=== PATIENT | male | born 1960 | race Caucasian/White ===

== ENCOUNTER 2017-03-07 11:30 | Emergency (ER) | payer OTHER ==
[2017-03-07 11:35] VITALS: TEMP 98.2
--- NOTE | 2017-03-07 11:49 | CPEKG ---
Heart Rate: 102 RR Interval: 588 P-R Interval: 164 QRSD Interval: 80 QT Interval: 340 QTC Interval: 443 P Merom: 30 QRS Merom: 72 T Wave Merom: 1 EKG Severity - OTHERWISE NORMAL ECG - EKG Impression: SINUS TACHYCARDIA EKG Impression: LOW VOLTAGE IN FRONTAL LEADS Electronically Signed By: Myrna Dumont 07-Mar-2017 17:23:12
[2017-03-07 11:57] LABS: % IMMATURE GRANULYOCYTES 0.3 % (0.0-1.1); ABSOLUTE IMMATURE GRANULOCYTES 0.03 10^3/uL (0.00-0.10); ADD DIFF? NO; ADD MORPH? NO; ADD SCAN? NO; ATYPICAL LYMPHOCYTE FLAG 0 (0-99); FRAGMENT RBC FLAG 0 (0-99); HEMATOCRIT 50.4 % (40.0-51.0); HEMOGLOBIN 17.2 g/dL (13.7-17.5); LEFT SHIFT FLG 0 (0-99); LIPEMIA HEMOLYSIS FLAG 90 (0-99); MEAN CELL HEMOGLOBIN 32.1 pg (27.9-34.1); MEAN CELL HEMOGLOBIN CONCENTR. 34.1 g/dL (32.4-36.7); MEAN PLATELET VOLUME 10.5 fL (8.7-11.7); PLATELET CLUMPS FLAG 0 (0-99); PLATELET COUNT 203 10^3/uL (150-400); RED BLOOD CELL COUNT 5.36 10^6/uL (4.40-6.38); RED CELL DISTRIBUTION WIDTH 13.8 % (11.5-15.2)
[2017-03-07 12:08] LABS: ANION GAP 16 mEq/L (8-16); CALCIUM 9.8 mg/dL (8.5-10.4); CARBON DIOXIDE 23 mEq/l (22-31); CHLORIDE 102 mEq/L (97-110); CREATININE 1.2 mg/dL (0.7-1.3); GLOMERULAR FILTRATION RATE > 60; GLUCOSE 102 mg/dL (70-100); POTASSIUM 4.6 mEq/L (3.5-5.2); SODIUM 141 mEq/L (134-144)
[2017-03-07 12:20] LABS: TROPONIN I < 0.012 ng/mL (0.000-0.034)
--- NOTE | 2017-03-07 13:11 | EDPHY ---
HPI/HX/ROS/PE/MDM Narrative: CHIEF COMPLAINT: Chest pain, nausea/vomiting HISTORY OF PRESENT ILLNESS: This patient is a 57 year old male arriving with his complaining of chest pain beginning yesterday which has been constant since that time. He has had chest pains intermittently for several years. He did follow up with cardiology ( Keith Castandea) about one year ago for an echocardiogram and stress test, which were negative. Yesterday, he had chest discomfort all day which he describes as tightness. It has been consistent without waxing or waning. He had no nausea or vomiting at that time, and thought his discomfort may be related to gas or musculoskeletal pains from golf, but he denies any irregular activities for him. His chest tightness continued this morning and he had associated nausea and vomited. His nausea has since resolved. He denies shortness of breath. He has some increased discomfort on the left side with deep inspiration. He endorses diarrhea onset one or two days ago. He did have an episode this morning. He denies abdominal pain, cramping, or bloating. No fever, chills, cough, recent illness, shortness of breath, palpitations, urinary complaints, headache, lightheadedness. He also relates that he has had some issues with pain in his left shoulder thought to be rotator cuff injury. REVIEW OF SYSTEMS: Aside from elements discussed in the HPI, a comprehensive 10-point review of systems was reviewed and is negative. PAST MEDICAL HISTORY: 1. Hypertension 2. Hyperlipidemia (atorvastatin) 3. History of clotting following procedure (not currently anticoagulated). Family history of CAD in father (triple bypass at age 53, angina) and mother ( multiple stent placements) SOCIAL HISTORY: . at bedside. Lives in [place] VITAL SIGNS: Reviewed by me GENERAL: Well-developed, well-nourished, resting comfortably in no respiratory distress. HEENT: Atraumatic. Eyes: No icterus, no injection. Mouth: moist mucous membranes. No erythema or lesions. Neck: supple with no adenopathy. LUNGS: Diminished breath sounds throughout, no wheezes or rhonchi or rales. No rash. Mild left-sided chest wall tenderness. Patient indicates the area of chest discomfort is in his pectoralis muscles on the left. CARDIAC: Regular rate and rhythm, no rubs, murmurs or gallops. ABDOMEN: Soft, nontender, nondistended, bowel sounds normal. BACK: No CVA tenderness. EXTREMITIES: No trauma. No edema. Range of motion is normal throughout. NEURO: Alert and oriented, grossly nonfocal. SKIN: Warm and dry, no rash. PSYCHIATRIC: Normal mentation, no agitation. Portions of this note were transcribed by a medical laboratory manager. I personally performed a history, physical exam, medical decision making, and confirmed accuracy of information the transcribed note. ED Course: 57 year old male presents with chest tightness constant since yesterday. Exam unremarkable. Plan for CBC, BMP, Troponin. D-dimer. Plan for EKG, chest x- ray. Chest x-ray negative for acute processes. Troponin negative. D-dimer negative. Patient received albuterol nebulizer treatment for diminished breath sounds. Patient is feeling well following Albuterol administration. Plan to discharge home in good condition. Long discussion held with patient and his concerning the need for risk stratification in the near future. Patient has had discomfort for greater than 24 hours with a nonischemic EKG and negative troponin. His discomfort seems musculoskeletal: The patient does have some tenderness in his pectoralis muscles. He felt better following a neb treatment. He understands the importance of follow-up with his primary care physician. Understands importance of returning to the emergency department if his symptoms were to worsen, or change in any way. MDM: After history and physical examination, the differential for chest pain was considered, including but not limited to, myocardial ischemia, acute coronary syndrome, pulmonary embolus, bronchospasm, chest wall pain, pleural inflammation and pulmonary infectious causes. - Data Points Imaging Results: Imaging Impressions Chest X-Ray 03/07/17 11:49 Impression: Clear lungs. No acute process. Imaging: I viewed and interpreted images myself Laboratory Results: Laboratory Results 03/07/17 11:42 03/07/17 11:49 03/07/17 03/07/17 03/07/17 11:49 11:42 11:42 WBC 11.95 10^3/uL H 10^3/uL (3.80-9.50) RBC 5.36 10^6/uL 10^6/uL (4.40-6.38) Hgb 17.2 g/dL g/dL (13.7-17.5) Hct 50.4 % % (40.0-51.0) MCV 94.0 fL fL (81.5-99.8) MCH 32.1 pg pg (27.9-34.1) MCHC 34.1 g/dL g/dL (32.4-36.7) RDW 13.8 % % (11.5-15.2) Plt Count 203 10^3/uL 10^3/uL (150-400) MPV 10.5 fL fL (8.7-11.7) Neut % (Auto) 90.5 % H % (39.3-74.2) Lymph % (Auto) 5.4 % L % (15.0-45.0) [place] % (Auto) 3.5 % L % (4.5-13.0) Eos % (Auto) 0.0 % L % (0.6-7.6) Baso % (Auto) 0.3 % % (0.3-1.7) Nucleat RBC Rel Count 0.0 % % (0.0-0.2) Absolute Neuts (auto) 10.83 10^3/uL H 10^3/uL (1.70-6.50) Absolute Lymphs (auto) 0.64 10^3/uL L 10^3/uL (1.00-3.00) Absolute Monos (auto) 0.42 10^3/uL 10^3/uL (0.30-0.80) Absolute Eos (auto) 0.00 10^3/uL L 10^3/uL (0.03-0.40) Absolute Basos (auto) 0.03 10^3/uL 10^3/uL (0.02-0.10) Absolute Nucleated RBC 0.00 10^3/uL 10^3/uL (0-0.01) Immature Gran % 0.3 % % (0.0-1.1) Immature Gran # 0.03 10^3/uL 10^3/uL (0.00-0.10) D-Dimer 0.35 ug/mLFEU ug/mLFEU (0.00-0.50) Sodium 141 mEq/L mEq/L (134-144) Potassium 4.6 mEq/L mEq/L (3.5-5.2) Chloride 102 mEq/L mEq/L (97-110) Carbon Dioxide 23 mEq/l mEq/l (22-31) Anion Gap 16 mEq/L mEq/L (8-16) BUN 18 mg/dL mg/dL (7-23) Creatinine 1.2 mg/dL mg/dL (0.7-1.3) Estimated GFR > 60 Glucose 102 mg/dL H mg/dL (70-100) Calcium 9.8 mg/dL mg/dL (8.5-10.4) Troponin I < 0.012 ng/mL ng/mL (0.000-0.034) Medications Given: Discontinued Medications Albuterol (Proventil Neb) 3 ml IH EDNOW ONE Stop: 03/07/17 13:50 Last Admin: 03/07/17 13:54 Dose: 3 ml General Time Seen by Provider: 03/07/17 12:39 Initial Vital Signs: Initial Vital Signs Temperature (C) 36.8 C 03/07/17 11:33 Heart Rate 98 03/07/17 11:33 Respiratory Rate 18 03/07/17 11:33 Blood Pressure 138/98 H 03/07/17 11:33 O2 Sat (%) 96 03/07/17 11:33 O2 Delivery Mode Room Air Allergies/Adverse Reactions: No Known Allergies Allergy (Verified 03/07/17 11:31) Home Medications: Medication Instructions Recorded Atorvastatin Calcium 03/07/17 Departure - Departure Disposition: Home, Routine, Self-Care Clinical Impression: Chest discomfort Condition: Good Instructions: Chest Pain (ED) Additional Instructions: 1. Follow up with your primary care provider for further evaluation of symptoms unresolved in the next 1-2 days. 2. Return to the emergency department for increased chest pain, shortness of breath, fever, or other worsening of condition. 3. You may try Ibuprofen 600mg every 6-8 hours for pain relief. Referrals: Vidhi Hanson MD [Primary Care Provider] - As per Instructions Report Scribed for: Myrna Dumont Report Scribed by: Anne Marie Gordon Date of Report: 03/07/17 Time of Report: 13:12
[2017-03-07] MEDS ORDERED: ALBUTEROL 3 ML DEYVIAL IH ONE (13:49)
[2017-03-07 14:35] VITALS: BP 114/84; PULSE 92; RESP 16; O2SAT 94
== END 2017-03-07 14:35 | disposition home or self-care (01) ==
DX: R07.89 Other chest pain (principal); I10 Essential (primary) hypertension